=== PATIENT | female | born 1965 | race African-American/Black ===

== ENCOUNTER 2016-08-03 14:13 | Emergency (ER) | payer OTHER, MEDICAID ==
[~2016-08-03] VITALS: Ht 154.9 cm; Wt 68.0 kg
[2016-08-03 15:08] VITALS: BP 96/69
--- NOTE | 2016-08-03 16:30 | Emergency Room Report ---
History of Present Illness General Chief Complaint: Skin Rash/Abscess Source: Patient Present Illness HPI 50-year-old female presents to ED for evaluation. Blanker Operator at bedside states that patient has an infection on her right hip. Was started on antibiotics by her doctor on Sunday. Facility is concerned that the infection is getting worse so they brought patient to the hospital. Patient has cognitive delay; only states that there is pain. Unable to provide any additional history. No fevers or chills. No drainage. Is able to walk. Patient was prescribed doxycycline and Bactrim. No other aggravating or relieving factors. Any other associated symptoms Allergies: Coded Allergies: No Known Allergies (Unverified , 08/03/16) Patient History Past Medical History: seizures Past Surgical History: none Pertinent Family History: none Social History: Denies: alcohol use, drug use, smoking Now: No Immunizations: UTD Reviewed Nursing Documentation: PMH: Agreed, PSxH: Agreed Nursing Documentation-PMH Hx Seizures: Yes Review of Systems All Other Systems: negative except mentioned in HPI Physical Exam Vital Signs Date Time Temp Pulse Resp B/P Pulse Ox O2 Delivery O2 Flow Rate FiO2 08/03/16 14:28 98.1 74 15 96/69 98 Room Air Sp02 EP Interpretation: reviewed, normal General Appearance: no apparent distress, alert, GCS 15, non-toxic Head: normocephalic Eyes: bilateral eye PERRL, bilateral eye normal inspection ENT: normal ENT inspection Neck: normal inspection Respiratory: chest non-tender, lungs clear, normal breath sounds, speaking full sentences Cardiovascular #1: regular rate, rhythm, no edema Gastrointestinal: normal bowel sounds, non tender, soft, non-distended, no guarding, no rebound Rectal: deferred Genitourinary: no CVA tenderness Musculoskeletal: back normal Neurologic: alert, oriented x3, responsive, motor strength/tone normal, sensory intact, speech normal, other - cognitive delay Psychiatric: other - cognitive delay Skin: other - erythema/induration 5x5cm area to R hip. 1cm ulceration noted in center. no fluctuance. no discharge Lymphatic: normal inspection Medical Decision Making Diagnostic Impression: Primary Impression: Encounter for wound re-check Additional Impression: Abscess ER Course Hospital Course 50-year-old female presents to ED with redness, swelling to right hip Differential diagnoses include: Cellulitis, dermatitis, insect bite, abscess Clinical course Patient placed on stretcher. After initial history, physical exam reveals a middle aged female in no acute distress. On exam there is a 5 x 5 cm area of induration to the right hip. With 1 cm area of ulceration in the middle. No fluctuance. No discharge. There is full range of motion to the right hip. No fever. ambulating without difficulty Patient was prescribed doxycycline and Bactrim. Patient is currently on day 3 of antibiotics. I explained to the burnisher that it is too early to determine whether the antibiotics or not working. The doctor who prescribed antibiotics told the burnisher that it will "get worse before it gets better" I agreed with assessment. I state that patient needs a few more days of antibiotics to determine whether it is responding. However by day 7 and is not getting better patient will likely have to be admitted for IV antibiotics. Blanker Operator agrees with the assessment Diagnosis - encounter for wound recheck, abscess stable and discharged to home with prescription. continue antibiotics as prescribed. Warm compresses. Instructed to followup with PMD. Instructed return to ED if symptoms recur or worsen Last Vital Signs Date Time Temp Pulse Resp B/P Pulse Ox O2 Delivery O2 Flow Rate FiO2 08/03/16 15:08 98.1 15 96/69 98 Room Air 08/03/16 14:28 74 Status: improved Disposition: HOME, SELF-CARE Condition: Stable Referrals: [facility],REFERRING (PCP) Patient Instructions: Abscess Additional Instructions: continue abx as directed. warm compresses. f/up with PMD. return to ED if symptoms worsen MADDIE DYSON M.D. Aug 03, 2016 16:30
== END 2016-08-03 15:08 | disposition home or self-care (01) ==
LOC: EMR 15:00
DX: L02.415 Cutaneous abscess of right lower limb (principal); L98.499 Non-pressure chronic ulcer of skin of other sites with unspecified severity
CPT/HCPCS: 99282